=== PATIENT | female | born 1965 | race Two or more races ===

== ENCOUNTER 2020-04-16 08:51 | Outpatient (REF) | payer OTHER, SELFPAY ==
[2020-04-16 09:40] LABS: MANUAL DIFF FLAG NO
[2020-04-16 09:45] LABS: Basophils Percent Auto 0.5 % (0-2); Eosinophils Absolute Auto 0.1 X10*3/uL (0.0-0.4); Eosinophils Percent Auto 1.2 % (0-4); Hematocrit 37.3 % (37-47); Hemoglobin 11.6 g/dl (12.0-16.0); Imm Gran Abs Auto 0.02 X10*3/uL (0.00-0.03); Imm Gran Pct Auto 0.3 % (0.0-0.4); Lymphocytes Absolute Auto 1.8 X10*3/uL (1.2-4.9); Lymphocytes Percent Auto 30.1 % (20-40); Mean Corpuscular HGB Conc 31.1 g/dl (31.0-35.0); Mean Corpuscular Hemoglobin 25.9 pg (27.0-33.0); Mean Corpuscular Volume 83.3 fL (80-98); Mean Platelet Volume 10.7 fL (9.4-12.3); Monocytes Absolute Auto 0.5 X10*3/uL (0.1-1.2); Monocytes Percent Auto 7.7 % (2-11); Neutrophils Absolute Auto 3.6 X10*3/uL (2.0-8.3); Neutrophils Percent Auto 60.2 % (45-73); Platelet Count 291 X10*3/uL (160-400); Red Blood Count 4.48 X10*6/uL (4.20-5.50); Red Cell Distribution Width 14.8 % (11.0-16.0)
[2020-04-16 10:25] LABS: Lipase 36 U/L (8-78)
[2020-04-16 10:39] LABS: Thyroid Stimulating Hormone 1.72 mIU/mL (0.32-4.0)
== END 2020-04-16 08:52 | disposition home or self-care (01) ==
LOC: HO.LAB 08:51
PROVIDERS: Visit Provider Internal Medicine
DX: G44.209 Tension-type headache, unspecified, not intractable (principal); I10 Essential (primary) hypertension; R10.13 Epigastric pain; R21 Rash and other nonspecific skin eruption
CPT/HCPCS: 36415; 83690; 84443; 85025

== ENCOUNTER 2020-05-26 15:03 | Outpatient (REF) | payer OTHER, SELFPAY ==
--- NOTE | 2020-05-26 15:11 | MM_ITS ---
EXAMINATION: MM SCREENING DIGITAL BREAST TOMOSYNTHESIS, BILATERAL CLINICAL INFORMATION: Screening. Asymptomatic. The lifetime risk of breast cancer based on the Tyrer-Cuzick Model is 7.6%. COMPARISON: Mammography: May 21, 2019 TECHNIQUE: Digital breast tomosynthesis is performed in both the craniocaudal and mediolateral oblique views along with computer-aided detection (CAD). Synthesized 2D images are generated from the tomosynthesis. FINDINGS: The breasts are heterogeneously dense, which may obscure small masses (ACR BI-RADS breast composition Category c). There are no significant masses, abnormal calcifications, or other abnormalities. MM/MM tomosynthesis screening BI IMPRESSION: There are no significant changes from prior study. ASSESSMENT: BI-RADS 1: Negative RECOMMENDATION: Routine annual mammography screening. This patient's information was entered into a reminder system with a target due date for their next mammogram.
== END 2020-05-26 15:04 | disposition home or self-care (01) ==
LOC: HO.MAMMO 15:03
PROVIDERS: PCP Internal Medicine; Visit Provider Internal Medicine
DX: Z12.31 Encounter for screening mammogram for malignant neoplasm of breast (principal)
CPT/HCPCS: 77063; 77067

== ENCOUNTER 2020-07-01 08:59 | Outpatient (REF) | payer OTHER, SELFPAY ==
[2020-07-01 10:18] LABS: Alanine Aminotransferase 28 U/L (0-31); Albumin Level 4.3 g/dL (3.5-5.0); Alkaline Phosphatase 78 U/L (39-117); Anion Gap 11 (12-20); Aspartate Amino Transferase 20 U/L (5-31); Bilirubin Total 0.7 mg/dL (0.0-1.0); Blood Urea Nitrogen 26 mg/dL (9-16); Calcium 9.4 mg/dL (8.4-10.2); Carbon Dioxide 32 mmol/L (22-29); Chloride 105 mmol/L (96-108); Cholesterol 229 mg/dL; Estimated Glomerular Filt Rate > 60; Glucose Random 84 mg/dL (60-115); HDL Cholesterol 88 mg/dL; LDL Cholesterol Calculated 118 mg/dl; Potassium 4.4 mmol/l (3.3-5.1); Sodium 144 mmol/L (135-145); Total Protein 7.1 g/dL (6.5-8.0); Triglycerides 116 mg/dL
== END 2020-07-01 09:00 | disposition home or self-care (01) ==
LOC: HO.LAB 08:59
PROVIDERS: PCP Internal Medicine; Visit Provider Internal Medicine
DX: Z00.00 Encounter for general adult medical examination without abnormal findings (principal); E78.00 Pure hypercholesterolemia, unspecified; I10 Essential (primary) hypertension
CPT/HCPCS: 36415; 80053; 80061

== ENCOUNTER 2021-01-25 07:50 | Outpatient (REF) | payer OTHER, SELFPAY ==
--- NOTE | ~2021-01-25 | US_ITS ---
EXAMINATION: US ABDOMEN COMPLETE CLINICAL INFORMATION: Epigastric pain. COMPARISON: None TECHNIQUE: Real-time imaging of the abdominal viscera. FINDINGS: PANCREAS: The pancreas is obscured by overlying bowel gas. ABDOMINAL AORTA: The proximal and distal segments are normal in caliber. The midportion of the aorta is not seen. INFERIOR VENA CAVA: Visualized portions are normal. LIVER: Normal. The liver is normal in size. The liver contour is normal. Parenchymal echogenicity is normal. No focal hepatic lesion. There is no intrahepatic biliary duct dilatation seen. GALLBLADDER: There is no tenderness to palpation. The gallbladder appears predominantly contracted. The gallbladder is physiologically distended without evidence of stones, sludge, polyps, wall thickening or pericholecystic fluid. COMMON BILE DUCT: Normal in caliber measuring 0.6 cm in diameter. RIGHT KIDNEY: Normal. No hydronephrosis. No renal calculi or focal parenchymal lesions. The kidney measures 11.8 cm in maximum dimension. LEFT KIDNEY: There is deformity to the left kidney. I cannot tell of this represents a left renal mass or effusion defect to the left kidney. No hydronephrosis. No renal calculi or focal parenchymal lesions. The kidney measures 11.0 cm in maximum dimension. SPLEEN: Normal. The spleen measures 7.8 cm in maximum dimension. FREE FLUID: None. US/US abdomen complete IMPRESSION: 1. There is deformity to the left kidney which is difficult to discern based on the body habitus. It could represent a perfusion defect. However, a mass cannot be completely excluded. A contrast-enhanced MRI or CT scan is recommended for better delineation. 2. The gallbladder appears contracted. No gallstones are seen.
== END 2021-01-25 07:51 | disposition home or self-care (01) ==
LOC: HO.US 07:50
PROVIDERS: Visit Provider Internal Medicine
DX: R10.13 Epigastric pain (principal)
CPT/HCPCS: 76700

== ENCOUNTER 2021-06-02 13:19 | Outpatient (REF) | payer OTHER, SELFPAY ==
--- NOTE | ~2021-06-02 | MM_ITS ---
EXAMINATION: MM SCREENING DIGITAL BREAST TOMOSYNTHESIS, BILATERAL CLINICAL INFORMATION: Screening. Asymptomatic. The lifetime risk of breast cancer based on the Tyrer-Cuzick Model is 8.9%. COMPARISON: Mammography: May 26, 2020 and May 21, 2019 TECHNIQUE: Digital breast tomosynthesis is performed in both the craniocaudal and mediolateral oblique views along with computer-aided detection (CAD). Synthesized 2D images are generated from the tomosynthesis. FINDINGS: There are scattered areas of fibroglandular density (ACR BI-RADS breast composition Category b). There are no significant masses, abnormal calcifications, or other abnormalities. MM/MM tomosynthesis screening BI IMPRESSION: There are no significant changes from prior study. ASSESSMENT: BI-RADS 1: Negative RECOMMENDATION: Routine annual mammography screening. This patient's information was entered into a reminder system with a target due date for their next mammogram.
== END 2021-06-02 13:20 | disposition home or self-care (01) ==
LOC: HO.MAMMO 13:19
PROVIDERS: Visit Provider Internal Medicine
DX: Z12.31 Encounter for screening mammogram for malignant neoplasm of breast (principal)
CPT/HCPCS: 77063; 77067

== ENCOUNTER 2021-06-20 07:38 | Outpatient (REF) | payer OTHER, SELFPAY | END 2021-06-20 07:39 | disposition home or self-care (01) | LOC: HO.HMGCLDS 07:38 | PROVIDERS: Visit Provider Internal Medicine | DX: Z20.822 Contact with and (suspected) exposure to COVID-19 (principal) | CPT/HCPCS: C9803; U0003; U0005 ==

== ENCOUNTER 2023-08-23 10:12 | Outpatient (REF) | payer OTHER, SELFPAY ==
[2023-08-23 11:50] LABS: Hematocrit 38.9 % (37.0-47.0); Hemoglobin 12.4 g/dl (12.0-16.0); Mean Corpuscular HGB Conc 31.9 g/dl (31.0-35.0); Mean Corpuscular Hemoglobin 26.5 pg (27.0-33.0); Mean Corpuscular Volume 83.1 fL (80.0-98.0); Mean Platelet Volume 10.2 fL (9.4-12.3); Platelet Count 297 X10*3/uL (160-400); Red Blood Count 4.68 X10*6/uL (4.20-5.50); Red Cell Distribution Width 14.2 % (11.0-16.0); White Blood Count 7.9 X10*3/uL (4.8-10.8)
[2023-08-23 12:45] LABS: Anion Gap 14 (12-20); Blood Urea Nitrogen 17 mg/dL (9-16); Calcium 10.1 mg/dL (8.4-10.2); Carbon Dioxide 30 mmol/L (22-29); Chloride 101 mmol/L (96-108); Estimated Glomerular Filt Rate > 60; Glucose Random 90 mg/dL (60-115); Potassium 4.1 mmol/L (3.3-5.1); Sodium 141 mmol/L (135-145); TSH reflex Free T4 1.04 uIU/mL (0.32-4.0)
== END 2023-08-23 10:13 | disposition home or self-care (01) ==
LOC: HO.LAB 10:12
PROVIDERS: PCP Internal Medicine; Visit Provider Internal Medicine Cardiovascular Disease
DX: R00.2 Palpitations (principal); I10 Essential (primary) hypertension
CPT/HCPCS: 36415; 80048; 83735; 84443; 85027; 93005

== ENCOUNTER 2023-08-23 10:12 | Outpatient (AMB) | payer OTHER, SELFPAY ==
[2023-08-23 10:23] VITALS: PULSE 73; BMI 29.2
--- NOTE | 2023-08-23 10:23 | A.OFFVIS_ITS ---
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 She is accompanied by her today. She comes because she was recently having symptoms of palpitations and was with very bothered by it. He feels that her heart rate goes really rapid. For that reason because of uncontrolled syndrome she visited office and was noted to have significantly elevated blood pressure in the 200 range. She says she has longstanding history of hypertension generally runs between systolic 140 -160 systolic. It has never been that high. Because of high blood pressure she was started on losartan therapy. But after that she started noticing some back pain and read the pamphlet and decided to stop her losartan. She then continues to have elevated blood pressure but also has symptoms of palpitations. 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 She says she has lot of anxiety and stress related to it. She has not able to cope with it. She has not had any recent blood work, and she is afraid of getting on any medications due to side effects. In the past she had been on lisinopril and developed a cough. She denies any exertional chest pain or shortness of breath. EKG done today shows no significant abnormality. [facility] Medical History (Updated 08/23/23 @ 11:08 by Chapin Webb MD) HTN (hypertension) Review of Systems Const Denies weakness ENT Denies dizziness Card Details: Palpitations Denies chest pain, Denies chest pain with activity, Denies syncope, Denies rapid heart rate, Denies pedal edema, Denies edema, Denies leg edema, Denies lightheadedness, Reports palpitations, Denies dyspnea, Denies dyspnea on exertion and Denies orthopnea Resp Denies cough, Denies dyspnea and Denies dyspnea on exertion GI Denies hematochezia and Denies change in stool character Musc Denies abnormal gait, Denies muscle cramps, Denies muscle weakness, Denies numbness, Denies radiating pain into limb and Denies tingling Neuro Denies abnormal gait, Denies dizziness, Denies syncope, Denies numbness, Denies tingling and Denies weakness Endo Reports palpitations Physical Exam Vital Signs: Last Vital Signs Pulse 73 08/23/23 10:23 BMI result Body Mass Index 29.2 Const General: cooperative, comfortable, no acute distress, alert, awake, Physically active, anxious and well groomed Nutritional Appearance: overweight Orientation/consciousness: patient oriented x3 Limitations: no limitations HEENT Head: Yes normocephalic and Yes atraumatic Neck Neck: Yes trachea midline, Yes supple and Yes no JVD Resp Effort & Inspection: normal respiratory effort Auscultation: clear to auscultation bilaterally Cardio Jugular venous distension: no JVD Palpation: normal PMI Rate: regular rate Rhythm: regular rhythm Heart sounds: S1 normal heart sound present, S2 normal heart sound present, no click, no gallops, no murmurs and no rubs GI Auscultation: normal bowel sounds Skin General skin exam: no rashes or lesions noted Neuro General: patient oriented x3 and no focal motor deficits Extrem General: Yes no clubbing, cyanosis or edema Psych Appearance: grossly normal Affect: Anxious affect present Office Procedures EKG Details: EKG shows normal sinus rhythm with no significant abnormality [id number], Complete Assessment & Plan Assessment & Plan (1) Palpitations: Code(s): R00.2 - Palpitations Plan: Recent onset symptoms of palpitation which are highly suggestive sinus tachycardia although SVT or atrial fibrillation can not be entirely ruled out. This is most likely related to increased stress in her life with associated anxiety/panic attacks. She is extremely anxious today and also event with the situation in her life. Will obtain a 7 day Holter monitor. I think she would benefit from treatment for general anxiety disorder. I would prescribe burden nonselective beta-marifer propranolol once we have a Holter monitor findings and ruled out any significant arrhythmias. Will also obtain an echocardiogram to assess for LV systolic and diastolic function near future. Meanwhile will obtain baseline blood work including thyroid profile and CBC as well as renal function to rule out any other potential cause of sinus tachycardia. She understands and agrees. We discussed about various stress mitigation strategies. (2) HTN (hypertension): Code(s): I10 - Essential (primary) hypertension Plan: Hypertension which is longstanding. We discussed management of hypertension as this requires and causes end-organ damage. Importance of good blood pressure control was discussed. Importance of pharmacotherapy was discussed. Pa rticipate in stress mitigation strategies. Increasing oral water intake as well as reduction salt intake was discussed. Advised to continue monitor blood pressure at home and maintain a log. Once we have had Holter monitor hooked up will start her on nonselective beta-marifer such as propranolol to counter both high blood pressure as well as tachycardia. She would benefit from such treatment. Impact of long-term control of blood pressure goal blood pressure less than 130/84 was discussed with her. Will follow up in the clinic in 6 weeks time, sooner p.r.n.. Thank you for allowing me to partake in the care Orders: Orders CA echo transthoracic complete 08/23/23 R00.2 - Palpitations Basic Metabolic Panel 08/23/23 R00.2 - Palpitations TSH reflex Free T4 08/23/23 R00.2 - Palpitations ECG 7 day holter monitor 08/23/23 R00.2 - Palpitations Complete Blood Count no Diff 08/23/23 R00.2 - Palpitations Magnesium 08/23/23 R00.2 - Palpitations Coding Level of Care Code New Pt Level 4 (00071) Diagnoses Palpitations R00.2 HTN (hypertension) I10 CPT Codes EKG - CPT: 42832-[id number], Complete ([id number])
== END 2023-08-23 11:12 | disposition home or self-care (01) ==
PROVIDERS: PCP Internal Medicine; Visit Provider Internal Medicine Cardiovascular Disease
DX: R00.2 Palpitations (principal); I10 Essential (primary) hypertension
CPT/HCPCS: 93010; 99204

== ENCOUNTER → 2023-10-03 07:51 | Outpatient (REF) | payer OTHER, SELFPAY ==
--- NOTE | 2023-10-03 07:55 | CA_ITS ---
Transthoracic Echocardiogram Patient (Last, First, Middle): Zonia Artis, Gender: Female Date of : 1965 Age: 58 Procedure Date: 10/03/2023 Procedure Type: Transthoracic Echocardiogram Location: OP Height: 154.94 cm Weight: 69.85 kg BSA: 1.69 m2 Heart Rate: 73 bpm BP: 162 / 86 mmHg Medical Collections: Referring MD: Chapin Webb MD Symptoms: R00.2 - Palpitations Study Quality: Adequate ECG Rhythm: Sinus Conclusions: - The left ventricular systolic function is low normal. The visually estimated ejection fraction is between 50-55%. - No obvious valvular pathology seen on this study. Findings Left Ventricle Normal left ventricular cavity size. There is normal left ventricular wall thickness. The left ventricular systolic function is low normal. The visually estimated ejection fraction is between 50-55%. There is no evidence of regional wall motion abnormalities. Diastolic function is normal for age. LV peak GLS -17.6%. Right Ventricle Normal right ventricular cavity size and systolic function. Atria Both atria are normal in size. Aortic Valve There is a normal trileaflet aortic valve. There is no aortic valve stenosis. There is no aortic valve regurgitation. Mitral Valve The mitral valve appears normal. There is trace mitral valve regurgitation. There is no mitral valve stenosis. Pulmonic Valve The pulmonic valve is likely normal. There is trace pulmonic valve regurgitation. Tricuspid Valve There is trace tricuspid valve regurgitation. There is no evidence of pulmonary hypertension. Great Vessels The asc aorta is normal in size. Venous The inferior vena cava was not well visualized. Pericardium/Pleural There is no evidence of pericardial effusion. Prior Study Comparison No prior study available for comparison. Recommendations, Care & Conclusions No obvious valvular pathology seen on this study. Measurements 2D Linear Measurements IVSd: 1.02 0.6-0.9/0.6-1.0 cm LVIDd: 4.42 3.9-5.3/4.2-5.9 cm LVIDd Index: 2.62 2.4-3.2/2.2-3.1 cm/m2 LVIDs: 3.20 2.0-3.6 cm LVPWd: 0.79 0.7-1.1 cm LA Diam: 4.00 2.7-3.8/3.0-4.0 cm LAIDs Index: 2.37 1.5-2.3 cm/m2 LV Mass: 161.55 67-162/88-224 g LV Mass Index: 95.59 43-95/49-115 g/m2 LVOT Diam: 1.90 3.0+(-)1.3 cm 2D Systolic Function EF 4C: 41.90 >55% EF 2C: 58.90 >55% EF BiP: 50.70 >55% Mitral Valve MV Pk E: 0.65 MV PK A: 0.65 MV Decel Time: 192.00 E/A: 1.00 E'Lateral: 8.16 E'Medial: 5.55 E/E' Med: 11.60 E/E' Lat: 7.90 PHT: 56.00 MVA PHT: 3.93 Decel Major: 3.35 Aortic Valve AoV Pk Lucas: 1.23 AoV Pk Grad: 6.00 ROSI: 2.22 LVOT LVOT Pk Lucas: 0.95 LVOT Mn Lucas: 0.69 LVOT VTI: 0.20 LVOT Pk Grad: 4.00 LVOT Mn Grad: 2.00 LVOT Diam: 1.90 LVOT Area: 2.84 Diastolic Function MV Pk E: 0.65 MV Pk A: 0.65 E/A: 1.00 E'Medial: 5.55 E/E' Med: 11.60 E' Laterial: 8.16 E/E' Lat: 7.90 Right Ventricle TAPSE (mm): 18.20 TVS' Lucas: 11.30 Tricuspid Valve TR Pk Lucas: 1.60 TR Pk Grad: 10.00 RA Press: 3.00 RVSP: 13.00 Great Vessels Aorta Sinus of Valsalva: 2.90 2.0-3.5 cm Ao Asc: 3.50 2.1-3.4 cm Pulmonary Veins Pulm Vein S/D 1.30 Pulmonary Valve PV Pk Lucas: 0.81 Peak PV Grad: 3.00 Updated in Other Vendor System with Status of Final Messi Ag MD electronically signed on 10/04/2023 11:30:03 AM with status of Final
--- NOTE | 2023-10-03 07:55 | HM_ITS ---
Conclusion: 1. Patient was monitored for total period of 6 days and 21 hours 2. Baseline was normal sinus rhythm with average heart of 84 beats per minute 3. No significant pauses noted 4. Rare ectopy noted 5. No patient reported events MTDD
== END ==
LOC: HO.CARD 07:51
PROVIDERS: PCP Internal Medicine; Visit Provider Internal Medicine Cardiovascular Disease
DX: R00.2 Palpitations (principal)
CPT/HCPCS: 93242; 93306; 93356

== ENCOUNTER → 2023-10-03 07:55 | Outpatient (BNV) | payer OTHER, SELFPAY | PROVIDERS: PCP Internal Medicine; Visit Provider Internal Medicine | DX: R00.0 Tachycardia, unspecified (principal) | CPT/HCPCS: 93244; 93306; 93356 ==

== ENCOUNTER 2024-06-05 06:00 | Emergency (ER) | payer OTHER, SELFPAY ==
--- NOTE | ~2024-06-05 | CT_ITS ---
EXAMINATION: CT ABDOMEN AND PELVIS WITHOUT CONTRAST CLINICAL INFORMATION: Severe left-sided flank pain COMPARISON: None available. TECHNIQUE: Multidetector volumetric imaging was performed from the superior aspect of the liver through the pubic symphysis. Sagittal and coronal reformatted images were obtained on the technologist's workstation. This CT examination was performed using dose optimization techniques as appropriate, variously including the following: *Automated exposure control *Adjustment of mA and/or kV according to patient size (this includes techniques or standardized protocols for targeted exams where dose is matched to indication/reason for exam; i.e. extremities or head) *Use of iterative reconstruction technique DLP: 507 mGy-cm FINDINGS: LUNG BASES: The visualized lung bases are unremarkable. LIVER, GALLBLADDER, AND BILIARY TREE: The liver is normal in size, shape, and attenuation. No focal hepatic lesion or biliary ductal dilatation is present. The gallbladder is unremarkable with no evidence of radiopaque gallstones, gallbladder wall thickening, or obvious pericholecystic inflammatory changes. PANCREAS: Unremarkable. SPLEEN: Unremarkable. ADRENAL GLANDS: Unremarkable. KIDNEYS AND URETERS: There is engorgement of the left kidney with perinephric stranding and mild left hydronephrosis. There is an obstructing stone observed at the left UPJ, at 4.6 mm. No right or left nephrolithiasis. No right hydronephrosis or perinephric collection. BLADDER: Unremarkable. GASTROINTESTINAL TRACT: Moderate sigmoid diverticulosis noted without diverticulitis. No bowel obstruction or right or left lower quadrant inflammatory change. Appendix normal. ABDOMINAL WALL: No significant hernia is appreciated. LYMPH NODES: Normal. VASCULAR: Unremarkable. PELVIC VISCERA: Uterus absent. No ascites. No adnexal masses. OSSEOUS STRUCTURES: On the lytic change within the spine. No fracture or destructive process. CT/CT abdomen pelvis wo IV con IMPRESSION: Obstructing stone in the left UPJ. Fleischner guidelines were followed. Electronically signed by: Elkin Lopez MD 06/05/2024 09:40 AM LATISHA
[2024-06-05 06:04] VITALS: BP 210/105; PULSE 85; RESP 22; TEMP 36.8; O2SAT 100; BMI 29.6
--- OUTSIDE RECORDS SUMMARY | 2024-06-05 06:04 | XMS_ITS | Patient Health Record ---
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 Name Role Phone Seble Costello Primary Care Provider UnavailDeepak Goncalves Unavailable [phone] ALLERGIES No Known Allergies REASON FOR REFERRAL No Information MEDICATIONS Medication SIG (Take, Route, Fr equency, Duration) Notes Start Date End Date Status tylenol Active Vitamin D Active Omeprazole 20 MG 1 capsule 30 minutes before morning meal Orally Once a day for 30 day(s) Active SOCIAL HISTORY Tobacco Use: Social History Observation Description Date Details (start date - stop date) Never Smoker NA - NA Sex Assigned At : Social History Observation Description Sex Assigned At Unknown Tobacco Use/Smoking Question Answer Notes Patient is a nonsmoker Alcohol Screen Question Answer Notes Did you have a drink contain ing alcohol in the past year? Yes How often did you have a dri nk containing alcohol in the past year? Monthly or less (1 point) How many drinks did you have on a typical day when you were drinking in the past year? 1 or 2 drinks (0 point) How often did you have 6 or more drinks on one occasion in the past year? Never (0 point) Points 1 Interpretation Negative PROBLEMS Problem Type ICD Code Onset Dates Problem Status W/U Status Risk SNOMED Code Notes Problem Encounter for screening for malignant neoplasm of colon (Z12.11) Active confirmed 207179392 Problem Abdominal pain, epigastric (R10.13) Active confirmed [id number] PLAN OF TREATMENT Pending Test Test Name Order Date US ABD 01/06/2021 US abdomen complete 01/25/2021 Future Test Test Name Order Date UPPER GI ENDOSCOPY 01/06/2021 COLONOSCOPY 01/06/2021 Insurance Providers Payer Name Payer Address Payer Phone Subscriber Number Group Number Insured Name Patient Relationship to Insured Coverage Start Date Coverage End Date [facility] [address] [place] [phone] [id number] ZACHARY MACKENZIE Self - patient is the insured MEDICAL (GENERAL) HISTORY Medical History History ICD Code Hypertension Migraine headaches Hx of blood transfusions/anemia from [facility] - Dr. Parker Denies NM,DM,CVA,Lung disease,renal dise ase Surgical History Surgery Date(Month/Year) Hysterectomy 2008
[2024-06-05 06:19] VITALS: BP 201/02; PULSE 79; RESP 15; TEMP 37.1; O2SAT 96
--- NOTE | 2024-06-05 06:24 | ED.GENADULT ---
HPI - General Adult General Chief complaint: Abdominal Pain Stated complaint: abd pain, back pain Time Seen by Provider: 06/05/24 06:24 Source: patient and RN notes reviewed Mode of arrival: ambulatory Limitations: no limitations History of Present Illness ED Provider: Ermias [facility] narrative: Patient is a 58-year-old female with history of HTN presenting to the emergency department with complaint of sudden onset left sided back and flank pain radiating to LLQ of abdomen which woke her from sleep at 2am. Took naproxen prior to arrival without relief. Pain has been constant and severe. Denies dysuria, hematuria or other urinary symptoms. Denies fever, chills, sweats. Denies nausea, vomiting, diarrhea, constipation. Does report one episode of hematemesis two days ago, but reports history of ulcer and denies any other symptoms until onset of pain this morning. MD complaint: left flank pain Onset (ago): hour(s) Radiation: abdomen Severity: severe Quality: sharp Pain Consistency: constant Relieving factors: none Exacerbating factors: none Associated symptoms: denies other symptoms Treatments prior to arrival: NSAID Related Data Previous Rx's ?Medication ?Instructions ?Recorded morphine 15 mg immediate release 15 mg PO Q8H PRN severe pain 06/05/24 tablet (scale score 7-10) #10 tabs ondansetron HCl 4 mg tablet 4 mg PO Q8H PRN nausea and 06/05/24 vomiting #10 tabs prednisone 20 mg tablet 20 mg PO DAILY #7 tabs 06/05/24 tamsulosin 0.4 mg capsule 0.4 mg PO DAILY #14 caps 06/05/24 Allergies Allergy/AdvReac Type Severity Reaction Status Date / Time oxycodone [From PERCOCET] Allergy Unknown ITCHYNESSS Unverified 06/05/24 06:07 Review of Systems Review of Systems: As per HPI Yes all other systems are reviewed and are negative Constitutional: Constitutional: Reports as per HPI [facility] Past Medical History Medical History (Updated 06/05/24 @ 10:48 by Cheyenne Monson NP) HTN (hypertension) Social History Social History Smoked in Last 30 Days: No Use of substances other than those prescribed or required for medical reasons: No Advance Directives: No Advance Directives Information Provided: Yes Patient : No Physical Exam ED Vital Signs: Vital Signs - 24 hr 06/05/24 06:04 12/19/24 06:19 06/05/24 07:09 Temperature 98.2 F 98.8 F 97.9 F Pulse Rate 85 79 81 Respiratory Rate 22 H 15 20 Blood Pressure 210/105 H 201/02 H 170/104 H Pulse Oximetry 100 96 100 Oxygen Delivery Method Room Air Room Air Room Air 06/05/24 08:31 Temperature 97.5 F Pulse Rate 67 Respiratory Rate 16 Blood Pressure 123/71 Pulse Oximetry 95 Oxygen Delivery Method Room Air BMI result Body Mass Index 29.6 Vital signs have been reviewed and appear to be correct. Blood pressure hypertensive. Heart rate normal. Respiratory rate normal. Temperature normal. Oxygen saturation normal. Const General: cooperative, healthy appearing and no acute distress Orientation/consciousness: oriented to person, oriented to place, oriented to time and patient oriented x3 Limitations: no limitations HENMT Head: Yes normocephalic and Yes atraumatic Ears: external ears normal General nose exam: Normal external nose present Face and sinus: Yes face symmetric Mouth: oropharynx normal and moist mucous membranes Throat: Yes uvula midline Eyes Pupils: Equal, round and reactive pupils present Neck Neck: Yes normal visual inspection and Yes supple Resp Effort & Inspection: normal respiratory effort and able to speak in complete sentences Auscultation: clear to auscultation bilaterally Cardio Rate: regular rate Rhythm: regular rhythm Heart sounds: S1 normal heart sound present and S2 normal heart sound present GI Palpation (GI): Soft to palpation, Tenderness to palpation present (GI) in the LLQ, no guarding and No Rebound tenderness present Auscultation: normoactive bowel sounds General: Yes CVA tenderness on the left Back/Spine/Pelvis Back: CVA tenderness Skin General skin exam: elasticity normal and turgor normal Neuro General: oriented to person, oriented to place, oriented to time, patient oriented x3, moves all extremities, no focal motor deficits and CN's II-XI intact bilaterally Cranial nerves: Yes Equal, round and reactive pupils present Cognition (Neuro): normal cognition Extrem General: Yes full ROM, Yes no pedal edema and Yes no calf tenderness Psych Mental Status: mental status grossly normal Affect: normal affect Thought process: Normal thought process present Medications Administered Discontinued Medications Generic Name Dose Route Start Last Admin Trade Name Freq PRN Reason Stop Dose Admin Hydromorphone HCl 1 mg 06/05/24 06:32 06/05/24 06:38 Hydromorphone Hcl 1 Mg/Ml Syringe IVPUSH 06/05/24 06:33 1 mg ONCE ONE Administration Protocol Hydromorphone HCl 2 mg 06/05/24 07:02 06/05/24 07:07 Hydromorphone Hcl 2 Mg/Ml Vial IVPUSH 06/05/24 07:03 2 mg ONCE ONE Administration Protocol Ketorolac Tromethamine 15 mg 06/05/24 10:14 06/05/24 10:30 Ketorolac Tromethamine 15 Mg/Ml Vial IVPUSH 06/05/24 10:15 15 mg ONCE ONE Administration Ondansetron HCl 4 mg 06/05/24 06:30 06/05/24 06:38 Ondansetron Hcl 4 Mg/2 Ml Vial IVPUSH 06/05/24 06:31 4 mg ONCE ONE Administration Medical Decision Making Medical Decision Making [facility] Narrative: Patient is a 58-year-old female with history of HTN presenting to the emergency department with complaint of sudden onset left sided back and flank pain radiating to LLQ of abdomen which woke her from sleep at 2am. On exam patient is awake, A+Ox3, VS WNL, afebrile, normal neurological exam without focal deficits, physical exam findings as above. Given reported symptoms and physical exam findings, initial differential includes renal/ureteral calculi, hydronephrosis, UTI/pyelonephritis, less likely diverticulitis. Labs notable for mild leukocytosis. UA is without evidence of infection. CT notable for 4.6mm obstructing calculi at L UPJ with mild hydronephrosis. My interpretation is in agreement with the radiologist's interpretation. Patient reports significant improvement in pain after medications administered in the ED. Results discussed with patient and and all questions answered. Case discussed with Dr. Bowling who is agreeable with plan to discharge home on prednisone, tamsulosin, zofran and morphine and follow up outpatient. Strict return precautions discussed with patient and at bedside. Patient verbalized understanding of and agreement with plan. Differential Diagnosis Differential Diagnoses: The differential diagnosis associated with the presentation includes As per MDM Admission/Observation Consideration of admission/observation: Escalation of care including admission/observation considered Patient would have been admitted to the hospital had their work up had any findings where hospital admission was appropriate and their clinical presentation warranted hospital admission. Consult Healthcare Provider Management of the patient was discussed with: Operational Risk Manager (Dr. Bowling, urology) Lab Data [facility] Lab Attestation statement: I reviewed the patient's lab results. As per MDM 06/05/24 06:31 06/05/24 08:39 Labs: Lab Results 06/05/24 06/05/24 06/05/24 Range/Units 06:31 08:39 08:51 WBC 13.3 H (4.8-10.8) X10*3/uL RBC 4.96 (4.20-5.50) X10*6/uL Hgb 13.1 (12.0-16.0) g/dl Hct 41.0 (37.0-47.0) % MCV 82.7 (80.0-98.0) fL MCH 26.4 L (27.0-33.0) pg MCHC 32.0 (31.0-35.0) g/dl RDW 14.3 (11.0-16.0) % Plt Count 292 (160-400) X10*3/uL MPV 10.9 (9.4-12.3) fL Immature Gran % (Auto) 0.7 H (0.0-0.4) % Neut % (Auto) 84.7 H (45-73) % Lymph % (Auto) 10.2 L (20-40) % [place] % (Auto) 3.8 (2-11) % Eos % (Auto) 0.3 (0-4) % Baso % (Auto) 0.3 (0-2) % Lymph # (Auto) 1.4 (1.2-4.9) X10*3/uL [place] # (Auto) 0.5 (0.1-1.2) X10*3/uL Eos # (Auto) 0.0 (0.0-0.4) X10*3/uL Baso # (Auto) 0.0 (0.0-0.2) X10*3/uL Abs Immat Gran (auto) 0.09 H (0.00-0.03) X10*3/uL Absolute Neuts (auto) 11.3 H (2.0-8.3) x10*3/uL Absolute Nucleated RBC 0.000 (0.0-0.012) X10*3/uL Nucleated RBC % (auto) 0.0 (0.0-0.2) /100WBC PT 9.5 L (10.9-12.4) SEC INR 0.8 L (0.9-1.1) Sodium 143 (135-145) mmol/L Potassium 4.4 (3.3-5.1) mmol/L Chloride 112 H (96-108) mmol/L Carbon Dioxide 24 (22-29) mmol/L Anion Gap 11 L (12-20) BUN 28 H (9-16) mg/dL Creatinine 1.01 (0.5-1.4) mg/dL Estim Creat Clear Calc 56.2 Estimated GFR 56 Random Glucose 180 H (60-115) mg/dL Calcium 9.2 D (8.4-10.2) mg/dL Total Bilirubin 0.5 (0.0-1.0) mg/dL AST 56 H (5-31) U/L ALT 50 H (0-31) U/L Alkaline Phosphatase 97 (39-117) U/L Total Protein 7.3 (6.5-8.0) g/dL Albumin 4.0 (3.5-5.0) g/dL Urine Color Yellow Urine Appearance Cloudy Urine pH 6.5 (5.0-9.0) Ur Specific [place] >= 1.030 H (1.005-1.025) Urine Protein 100 (2+) H (Neg-Trace) mg/dL Urine Glucose (UA) Negative (Negative) mg/dL Urine Ketones Negative (Negative) mg/dL Urine Blood Negative (Negative) Urine Nitrite Negative (Negative) Ur Leukocyte Esterase Negative (Negative) Urine RBC 0-2 (0-2) /HPF Urine WBC 0-5 (0-5) /HPF Ur Squamous Epith Cells 3-5 (0-2) /HPF Urine Bacteria None Seen (None Seen) Hyaline Casts 0-2 (0-2) /LPF Independent Interpretation I performed an independent interpretation of an: CT Scan Interpretation: 4.6mm obstructing calculi L UPJ with mild hydronephrosis Radiology Impression Discussion of test interpretation with radiology: I have reviewed the radiologist's reading. Radiologist Impression: CT/CT abdomen pelvis wo IV con IMPRESSION: Obstructing stone in the left UPJ. Fleischner guidelines were followed. Independent Historian Clinical information obtained from an independent historian. History obtained from or confirmed by: Spouse External Record Review External record reviewed: Inpatient record, Office record and Outpatient record Prescription Management I considered prescription management with: Pain Medication and Other Critical Care Time Critical Care Time Critical Care Time: Yes Total Critical Care Time: 35 Attestation: I have personally provided critical care time exclusive of time spent on separately billable procedures. Time includes review of lab data, radiology results, discussion with consultants, and monitoring for potential decompensation. Intervention performed as documented. Discharge Plan Discharge Clinical Impression: Calculus of left ureter Patient Disposition: Home, Self-Care Instructions: Low Oxalate Diet (ED), How to Strain Your Urine (ED), Hydronephrosis (ED), Ureteral Stones (ED) Additional Instructions: You were evaluated in the emergency department for flank pain. Your CT scan showed evidence of a stone in your left ureter. The stone is 4.6 mm which may or may not pass on its own. Your are being provided with a urine strainer to use at home, instructions are included in your discharge paperwork. You are being prescribed prednisone to decrease inflammation, tamsulosin to allow the stone to pass more easily, and morphine as needed for severe pain. You can also take 600 mg of ibuprofen every 6 hours as needed for pain. Your being prescribed ondansetron which you can use every 8 hours as needed for nausea. You are being referred to Urology, please call them within the next few days to schedule a follow up appointment. Return to the emergency department if you develop worsening pain, persistent vomiting, fever 100.4? or greater, inability to urinate, or any other concerning symptoms. Prescriptions: New ondansetron HCl 4 mg tablet 4 mg PO Q8H PRN (Reason: nausea and vomiting) Qty: 10 0RF morphine 15 mg tablet 15 mg PO Q8H PRN (Reason: severe pain (scale score 7-10)) Qty: 10 0RF Rx Instructions: Partial Fill upon patient request. prednisone 20 mg tablet 20 mg PO DAILY Qty: 7 0RF tamsulosin 0.4 mg capsule 0.4 mg PO DAILY Qty: 14 0RF Referrals: [facility] Urology Services [Provider Group] - 3 days (4.6mm calculi L UPJ) Stand Alone Forms: Work/School Release Print Language: Tristanian
[2024-06-05 06:37] LABS: MANUAL DIFF FLAG NO
[2024-06-05] MEDS: ondansetron HCL 4 MG/2 ML VIAL IVPUSH (06:38)
[2024-06-05] MEDS: HYDROmorphone HCl 1 MG/ML SYRINGE IVPUSH (06:38)
[2024-06-05 06:43] LABS: INTERNATIONAL NORM RATIO 0.8 (0.9-1.1); Prothrombin Time 9.5 SEC (10.9-12.4)
[2024-06-05 07:03] LABS: Basophils Percent Auto 0.3 % (0-2); Eosinophils Percent Auto 0.3 % (0-4); Hemoglobin 13.1 g/dl (12.0-16.0); Imm Gran Abs Auto 0.09 X10*3/uL (0.00-0.03); Imm Gran Pct Auto 0.7 % (0.0-0.4); Lymphocytes Absolute Auto 1.4 X10*3/uL (1.2-4.9); Lymphocytes Percent Auto 10.2 % (20-40); Mean Corpuscular Hemoglobin 26.4 pg (27.0-33.0); Mean Corpuscular Volume 82.7 fL (80.0-98.0); Mean Platelet Volume 10.9 fL (9.4-12.3); Monocytes Absolute Auto 0.5 X10*3/uL (0.1-1.2); Monocytes Percent Auto 3.8 % (2-11); Neutrophils Absolute Auto 11.3 x10*3/uL (2.0-8.3); Neutrophils Percent Auto 84.7 % (45-73); Platelet Count 292 X10*3/uL (160-400); Red Blood Count 4.96 X10*6/uL (4.20-5.50); Red Cell Distribution Width 14.3 % (11.0-16.0); White Blood Count 13.3 X10*3/uL (4.8-10.8)
[2024-06-05] MEDS: HYDROmorphone HCl 2 MG/ML VIAL IVPUSH (07:07)
[2024-06-05 07:09] VITALS: BP 170/104; PULSE 81; RESP 20; TEMP 36.6; O2SAT 100
[2024-06-05 08:31] VITALS: BP 123/71; PULSE 67; RESP 16; TEMP 36.4; O2SAT 95
[2024-06-05 09:01] LABS: Appearance Urine Cloudy; Color Urine Yellow; Glucose Urine UA Negative (Negative); Leukocyte Esterase Urine Negative (Negative); Nitrite Urine Negative (Negative); PH 6.5 (5.0-9.0); Specific Gravity - Urine >= 1.030 (1.005-1.025); UMIC TRIGGER UACC YES; Urine Blood Negative (Negative); Urine Ketones Negative (Negative); Urine Protein 100 (2+) mg/dL (Neg-Trace)
[2024-06-05 09:07] LABS: Alanine Aminotransferase 50 U/L (0-31); Alkaline Phosphatase 97 U/L (39-117); Anion Gap 11 (12-20); Aspartate Amino Transferase 56 U/L (5-31); Bilirubin Total 0.5 mg/dL (0.0-1.0); Blood Urea Nitrogen 28 mg/dL (9-16); Calcium 9.2 mg/dL (8.4-10.2); Carbon Dioxide 24 mmol/L (22-29); Chloride 112 mmol/L (96-108); Creatinine Clr Calc Pharmacy 56.2; Estimated Glomerular Filt Rate 56; Glucose Random 180 mg/dL (60-115); Potassium 4.4 mmol/L (3.3-5.1); Sodium 143 mmol/L (135-145); Total Protein 7.3 g/dL (6.5-8.0)
[2024-06-05 09:12] LABS: Bacteria Urine None Seen (None Seen); Hyaline Casts Urine 0-2 /LPF (0-2); RBC Urine 0-2 /HPF (0-2); WBC Urine 0-5 /HPF (0-5)
[2024-06-05] MEDS: Ketorolac Tromethamine 15 MG/ML VIAL IVPUSH (10:30)
[2024-06-05 11:13] VITALS: BP 126/80; PULSE 56; RESP 20; TEMP 36.5; O2SAT 96
== END 2024-06-05 11:13 | disposition home or self-care (01) ==
PROVIDERS: Registered Nurse Emergency; Emergency Provider Emergency Medicine Emergency Medical Services
DX: N13.2 Hydronephrosis with renal and ureteral calculous obstruction (principal); I10 Essential (primary) hypertension
CPT/HCPCS: 36415; 74176; 80053; 81001; 81003; 85025; 85610; 96374; 96375; 96376; 99284; J1171; J1885; J2405

== ENCOUNTER 2024-06-06 13:38 | Outpatient (AMB) | payer OTHER, SELFPAY ==
--- NOTE | 2024-06-06 13:42 | A.OFFVIS_ITS ---
Intake Visit Reasons: ER discharge kidney stone Intake Note: New patient Presents for [facility] ER Follow Up- Kidney Stones Any Urology Medication: was prescribed Tamsulosin at ER States that this medication has caused intense mirgraines Antibiotic Allergies: None Blood Thinners: None Patient states that she has no history of Kidney stones, Bladder/Kidney infections. She reports that she still has some discomfort but not as bad as she was at the ER on 06/05 Any Family History (Urological): Bladder Cancer? No Kidney Stones? No Account Development Executive Required: No Allergies oxycodone [From PERCOCET] Allergy (Unknown, Verified 06/16/24 08:37) ITCHYNESSS HPI Comments Details: Zonia is a 58-year-old female who is seen in the emergency room for flank pain. A 6 mm ureteral stone was identified. The patient is here with her and states the pain is manageable with the pain meds she was given. She denies fever. I discussed treatment options to include conservative as along as pain is manageable and there are no signs of infection but if she does not pass the stone, therapy discussed included ESWL vs ureteroscopy with laser lithotripsy. CTAP 06/05/24--6 mm left UPJ stone, with hydro. PFSH Medical History (Updated 06/16/24 @ 08:50 by Ehsan Riojas MD) Migraine HTN (hypertension) Surgical History (Updated 06/06/24 @ 14:09 by JEREMIAS Nevarez) History of hysterectomy Review of Systems Const All systems reviewed & are unremarkable except as noted in HPI and below Reports no additional complaints Eyes Reports no additional complaints ENT Reports no additional complaints Card Reports no additional complaints Resp Reports no additional complaints GI Reports no additional complaints Reports as per HPI Musc Reports no additional complaints Skin/Breast Reports system reviewed and no additional complaints, except as documented Neuro Reports no additional complaints Psych Reports no additional complaints Endo Reports no additional complaints Louie/Lymph Reports no additional complaints Aller/Immun Reports no additional complaints Physical Exam Const General: cooperative, healthy appearing and no acute distress Orientation/consciousness: patient oriented x3 HEENT Head: Yes normal to inspection, Yes normocephalic and Yes atraumatic Eyes Conjunctivae: conjunctivae normal Neck Neck: Yes normal visual inspection and Yes trachea midline Chest Chest palpation & inspection: normal inspection of the chest Resp Effort & Inspection: normal respiratory effort Cardio Rate: regular rate GI Inspection: Yes normal to inspection Skin General skin exam: no rashes or lesions noted Neuro General: patient oriented x3 Extrem General: No edema Psych Appearance: grossly normal Results AMB Urinalysis, Automated UA Leukoctes 0 Charlie/uL Last Edit by Chika Darden [facility] on 06/06/24 14:10 UA Nitrite Negative Last Edit by Chika Darden [facility] on 06/06/24 14:10 UA Urobilinogen 0.2 mg/dL Last Edit by Chika Darden [facility] on 06/06/24 14:1 0 UA Protein 100 mg/dL Last Edit by Chika Darden [facility] on 06/06/24 14:10 UA pH 5.5 Last Edit by Chika Darden [facility] on 06/06/24 14:10 UA Blood 25 [place]/uL Last Edit by Chika Darden [facility] on 06/06/24 14:10 UA Specific [place] 1.030 Last Edit by Chika Darden [facility] on 06/06/24 14: 10 UA Ketone Negative Last Edit by Chika Darden [facility] on 06/06/24 14:10 UA Bilirubin 0 mg/dL Last Edit by Chika Darden [facility] on 06/06/24 14:10 UA Glucose 0 mg/dL Last Edit by Chika Darden [facility] on 06/06/24 14:10 Results Reviewed Results Reviewed: Laboratory Last Values Urine pH (Auto) 5.5 06/06/24 14:02 Specific [place] (Auto) 1.030 06/06/24 14:02 Urine Protein (Auto) 100 mg/dL 06/06/24 14:02 Glucose (UA)(Auto) 0 mg/dL 06/06/24 14:02 Urine Ketones (Auto) Negative 06/06/24 14:02 Urine Blood (Auto) 25 [place]/uL 06/06/24 14:02 Urine Nitrite (Auto) Negative 06/06/24 14:02 Urine Bilirubin (Auto) 0 mg/dL 06/06/24 14:02 Urine Urobilinogen (Auto) 0.2 mg/dL 06/06/24 14:02 Leukocyte Esterase (Auto) 0 Charlie/uL 06/06/24 14:02 Date of Service: 06/05/24 CT ABDOMEN AND PELVIS WITHOUT CONTRAST CLINICAL INFORMATION: Severe left-sided flank pain COMPARISON: None available. TECHNIQUE: Multidetector volumetric imaging was performed from the superior aspect of the liver through the pubic symphysis. Sagittal and coronal reformatted images were obtained on the technologist's workstation. This CT examination was performed using dose optimization techniques as appropriate, variously including the following: *Automated exposure control *Adjustment of mA and/or kV according to patient size (this includes techniques or standardized protocols for targeted exams where dose is matched to indication/reason for exam; i.e. extremities or head) *Use of iterative reconstruction technique DLP: 507 mGy-cm FINDINGS: LUNG BASES: The visualized lung bases are unremarkable. LIVER, GALLBLADDER, AND BILIARY TREE: The liver is normal in size, shape, and attenuation. No focal hepatic lesion or biliary ductal dilatation is present. The gallbladder is unremarkable with no evidence of radiopaque gallstones, gallbladder wall thickening, or obvious pericholecystic inflammatory changes. PANCREAS: Unremarkable. SPLEEN: Unremarkable. ADRENAL GLANDS: Unremarkable. KIDNEYS AND URETERS: There is engorgement of the left kidney with perinephric stranding and mild left hydronephrosis. There is an obstructing stone observed at the left UPJ, at 4.6 mm. No right or left nephrolithiasis. No right hydronephrosis or perinephric collection. BLADDER: Unremarkable. GASTROINTESTINAL TRACT: Moderate sigmoid diverticulosis noted without diverticulitis. No bowel obstruction or right or left lower quadrant inflammatory change. Appendix normal. ABDOMINAL WALL: No significant hernia is appreciated. LYMPH NODES: Normal. VASCULAR: Unremarkable. PELVIC VISCERA: Uterus absent. No ascites. No adnexal masses. OSSEOUS STRUCTURES: On the lytic change within the spine. No fracture or destructive process. IMPRESSION: Obstructing stone in the left UPJ. Assessment & Plan Assessment & Plan (1) Calculus of left ureter: Code(s): N20.1 - Calculus of ureter Category: Medical (2) Hydronephrosis: Code(s): N13.30 - Unspecified hydronephrosis Category: Medical (3) Flank pain: Code(s): R10.9 - Unspecified abdominal pain Category: Medical Plan I discussed treatment options to include conservative as along as pain is manageable and there are no signs of infection but if she does not pass the stone, therapy discussed included ESWL vs ureteroscopy with laser lithotripsy. Orders: Orders AMB Urinalysis Automated 06/06/24 Z13.9 - Encounter for screening, unspecified Medications: Refilled morphine Partial Fill upon patient request. 15 mg PO Q8H PRN 10 tabs 0RF severe pain (scale score 7-10) Patient Instructions: The patient had an opportunity to ask questions regarding treatment plan. The patient expressed understanding and agreement with the above treatment plan. The patient is aware they should contact our office by phone for worsening of their current condition or the appearance of new symptoms. Compliance is encouraged with any medications and followup testing that is ordered. It is a privilege to be allowed the opportunity to participate in the urologic care of your patient. If you have any questions or concerns regarding treatment for the above conditions please do not hesitate to contact me. The office telephone contact is [phone]. This note is constructed in part using voice recognition software. While every effort has been made to ensure accuracy senior executive compensation analyst errors may have been included. Yours sincerely, Ehsan Riojas MD Coding Level of Care Code New Pt Level 4 (41778) Diagnoses Calculus of left ureter N20.1 Hydronephrosis N13.30 Flank pain R10.9
== END 2024-06-06 14:52 | disposition home or self-care (01) ==
PROVIDERS: Visit Provider Urology
DX: Z13.9 Encounter for screening, unspecified (principal)

== ENCOUNTER 2024-06-16 08:35 | Outpatient (AMB) | payer OTHER, SELFPAY ==
--- NOTE | 2024-06-16 08:36 | MHC.OFFVIS ---
Intake Visit Reasons: 2w follow up Intake Note: Patient is present for 2w f/u Urology Medication:tamsulosin Antibiotic Allergy:none Blood Thinner:none Vascular Technologist Required: No Allergies oxycodone [From PERCOCET] Allergy (Unknown, Verified 06/16/24 08:37) ITCHYNESSS Medication List - Last Reconciled 06/16/24 by Ehsan Riojas MD morphine 15 mg PO Q8H PRN ondansetron HCl 4 mg PO Q8H PRN prednisone 20 mg PO DAILY tamsulosin 0.4 mg PO DAILY HPI Comments Details: 06/16/24- follow-up visit for left ureteral stone and flank pain. The patient states she has been taking extra-strength Tylenol every 8 hours and the morphine p.r.n.. The pain is manageable but is not getting better. At times the pain gets unbearable and she thought she might need to go to the emergency room last night. I have discussed adding her to tomorrow schedule for ureteroscopy laser lithotripsy. Review of chart: 06/06/24--Zonia is a 58-year-old female who is seen in the emergency room for flank pain. A 6 mm ureteral stone was identified. The patient is here with her and states the pain is manageable with the pain meds she was given. She denies fever. I discussed treatment options to include conservative as along as pain is manageable and there are no signs of infection but if she does not pass the stone, therapy discussed included ESWL vs ureteroscopy with laser lithotripsy. CTAP 06/05/24--6 mm left UPJ stone, with hydro. PFSH Medical History Migraine HTN (hypertension) Surgical History History of hysterectomy Review of Systems Const All systems reviewed & are unremarkable except as noted in HPI and below Reports no additional complaints Eyes Reports no additional complaints ENT Reports no additional complaints Card Reports no additional complaints Resp Reports no additional complaints GI Reports no additional complaints Reports as per HPI Musc Reports no additional complaints Skin/Breast Reports system reviewed and no additional complaints, except as documented Neuro Reports no additional complaints Psych Reports no additional complaints Endo Reports no additional complaints Louie/Lymph Reports no additional complaints Aller/Immun Reports no additional complaints Physical Exam Const General: cooperative, healthy appearing and no acute distress Orientation/consciousness: patient oriented x3 HEENT Head: Yes normal to inspection and Yes atraumatic Eyes Conjunctivae: conjunctivae normal Neck Neck: Yes normal visual inspection and Yes trachea midline Chest Chest palpation & inspection: normal inspection of the chest Resp Effort & Inspection: normal respiratory effort Cardio Jugular venous distension: no JVD Neuro General: patient oriented x3 Psych Appearance: grossly normal Telehealth Telehealth Telehealth Platform: URBANARA Location of provider rendering services: practice address Location of patient: address on file Patient Identification confirmed using: Name, : Yes Telehealth method: video Patient verbally consented to treatment: Yes Patient verbally consented to billing insurance company: Yes Patient informed of any privacy concerns related to visit: Yes Assessment & Plan Assessment & Plan (1) Calculus of left ureter: Code(s): N20.1 - Calculus of ureter Category: Medical (2) Hydronephrosis: Code(s): N13.30 - Unspecified hydronephrosis Category: Medical (3) Flank pain: Code(s): R10.9 - Unspecified abdominal pain Category: Medical Plan I discussed Left ureteroscopy retrograde with laser lithotripsy, stent. Patient Instructions: The patient had an opportunity to ask questions regarding treatment plan. The patient expressed understanding and agreement with the above treatment plan. The patient is aware they should contact our office by phone for worsening of their current condition or the appearance of new symptoms. Compliance is encouraged with any medications and followup testing that is ordered. It is a privilege to be allowed the opportunity to participate in the urologic care of your patient. If you have any questions or concerns regarding treatment for the above conditions please do not hesitate to contact me. The office telephone contact is [phone]. This note is constructed in part using voice recognition software. While every effort has been made to ensure accuracy dental secretary errors may have been included. Yours sincerely, Ehsan Riojas MD Coding Level of Care Code Tele Est Pt Level 4 (74279) Diagnoses Calculus of left ureter N20.1 Hydronephrosis N13.30 Flank pain R10.9
--- OUTSIDE RECORDS SUMMARY | 2024-06-16 08:38 | XMS_ITS | Patient Health Record ---
Author Organization [facility] Address [address] [place] [address] Care Team Providers Care Academic Affairs Manager Name Role Phone Seble Costello Primary Care Provider UnavailDeepak Goncalves Unavailable [phone] ALLERGIES No Known Allergies REASON FOR REFERRAL [...] malignant neoplasm of colon (Z12.11) Active confirmed [id number] Problem Abdominal pain, epigastric (R10.13) Active confirmed [id number] PLAN OF TREATMENT Pending Test Test Name Order Date US ABD 01/06/2021 US abdomen complete 01/25/2021 Future Test Test Name Order Date UPPER GI ENDOSCOPY 01/06/2021 COLONOSCOPY 01/06/2021 Insurance Providers Payer Name Payer Address Payer Phone Subscriber Number Group Number Insured Name Patient Relationship to Insured Coverage Start Date Coverage End Date [facility] [address] [facility] [place] [phone] [id number] ZACHARY MACKENZIE Self - patient is the insured MEDICAL (GENERAL) HISTORY Medical History History ICD Code Hypertension Migraine headaches Hx of blood transfusions/anemia from [facility] - Dr. Parker Denies DC,DM,CVA,Lung disease,renal dise ase Surgical History Surgery Date(Month/Year) Hysterectomy 2008
== END 2024-06-16 10:03 | disposition home or self-care (01) ==
LOC: HO.HUSH 08:35
PROVIDERS: Visit Provider Urology
DX: N20.1 Calculus of ureter (principal); N13.30 Unspecified hydronephrosis; R10.9 Unspecified abdominal pain
CPT/HCPCS: 99214

== ENCOUNTER → 2024-06-16 08:35 | Outpatient (BNVA) | payer OTHER, SELFPAY | PROVIDERS: Visit Provider Urology ==

== ENCOUNTER 2024-06-17 11:53 | Day surgery (SDC) | payer OTHER, SELFPAY ==
--- NOTE | ~2024-06-17 | XR_ITS ---
EXAMINATION: XR ABDOMEN KUB CLINICAL INDICATION: pre lithotripsy, Left UPJ stone on prior CT COMPARISON: None available. TECHNIQUE: AP view of the abdomen. FINDINGS: There is scattered stool and gas in colon without distention. There is no organomegaly. No radiopaque renal calculi. There is several phleboliths in the left pelvis. XR/XR KUB IMPRESSION: Unremarkable KUB Electronically signed by: Wilian Moy MD 06/19/2024 07:46 AM EST
--- OUTSIDE RECORDS SUMMARY | 2024-06-17 11:55 | XMS_ITS | Patient Health Record ---
Author Organization [facility] Address [address] [place] [address] Care Team Providers Care Ceramic Tiler Name Role Phone Seble Costello Primary Care Provider UnavailDeepak Goncalves Unavailable [phone] ALLERGIES No Known Allergies REASON FOR REFERRAL [...] malignant neoplasm of colon (Z12.11) Active confirmed [id number] Problem Abdominal pain, epigastric (R10.13) Active confirmed [id number] PLAN OF TREATMENT Pending Test Test Name Order Date US ABD 01/06/2021 US abdomen complete 01/25/2021 Future Test Test Name Order Date UPPER GI ENDOSCOPY 01/06/2021 COLONOSCOPY 01/06/2021 Insurance Providers Payer Name Payer Address Payer Phone Subscriber Number Group Number Insured Name Patient Relationship to Insured Coverage Start Date Coverage End Date [facility] [address] [place] [phone] [id number] ZACHARY MACKENZIE Self - patient is the insured MEDICAL (GENERAL) HISTORY Medical History History ICD Code Hypertension Migraine headaches Hx of blood transfusions/anemia from [facility] - Dr. Parker Denies OR,DM,CVA,Lung disease,renal dise ase Surgical History Surgery Date(Month/Year) Hysterectomy 2008
[2024-06-17 12:49] VITALS: BP 162/96; PULSE 86; RESP 115; TEMP 36.8; O2SAT 98; BMI 28.2
[2024-06-17] MEDS: Lactated Ringers 1,000 ML 50 ML IVCONT (12:52)
--- NOTE | 2024-06-17 12:56 | HO.ANESPROP2 ---
[facility] Active Problems Active Problems: All Active Problems Flank pain (Acute) Hydronephrosis (Acute) Palpitations (Acute) HTN (hypertension) (Acute) Past Medical History Medical History (Updated 06/17/24 @ 12:48 by Lilia Varghese RN) Migraine HTN (hypertension) Family History Family history of problems with anesthesia: No Surgical History Surgical History History of hysterectomy History of Problems with Anesthesia: No Social History Social History Patient Tobacco Use Status: Never used Tobacco Use of substances other than those prescribed or required for medical reasons: No Are you DNR?: No Advance Directives: No Advance Directives Information Provided: Yes Meds Allergies Allergy/AdvReac Type Severity Reaction Status Date / Time oxycodone [From PERCOCET] Allergy Unknown ITCHYNESSS Verified 06/17/24 12:47 Active Medications: Current Medications Lactated Ringer's (Lr) 1,000 mls @ 50 mls/hr IVCONT .Q20H JAYME Last Admin: 06/17/24 12:52 Dose: 50 mls/hr Exam Height,Weight and Vital Signs: Height 5 ft 2 in Weight 69.853 kg Last Vital Signs Temp 98.3 F 06/17/24 12:49 Pulse 86 06/17/24 12:49 Resp 115 H 06/17/24 12:49 BP 162/96 H 06/17/24 12:49 Pulse Ox 98 06/17/24 12:49 O2 Del Method Room Air 06/17/24 12:49 Airway Mallampati Class: II TM Dist: >3cm Neck ROM: Full Assessment and Plan Assessment Anesthesia Assessment: Anesthesia Plan Discussed and Chart Reviewed Final Anesthetic Review Family History of Problems with Anesthesia: No History of Problems with Anesthesia: No NPO: Yes ASA Class: II Final Preanesthetic Review: No Changes in Pt Med Stat, Meds/Allgs Chart Reviewed, Consent Obtained/Reviewed and Anes Risks/Benef Reviewed Patient Risk: Low Procedure Risk: Low Anesthetic Plan Anesthetic Plan: GA Disposition: Standard PACU
--- NOTE | 2024-06-17 13:20 | MHC.SHP ---
Pre-Procedural Eval Section A - 24 Hr Update-Section A only Date of Service: 06/17/24 The patient is an INPATIENT: No The patient has been examined within 24 hours of the surgical procedure. The History & Physical has been completed within 30 days and I have reviewed it.: Yes Section B - Complete if H&P > 30 days Chief Complaint: Unspecified hydronephrosis, UPJ stone Allergies: Allergies Allergy/AdvReac Type Severity Reaction Status Date / Time oxycodone [From PERCOCET] Allergy Unknown ITCHYNESSS Verified 06/17/24 12:47 Plan Diagnosis/Plan: Unchanged I have reviewed the history and physical and performed a pertinent physical examination on my patient. No changes have occurred unless specified. Plan for Cystoscopy, left ureteroscopy, possible laser lithotripsy, ureteral stent. Risks discussed included but not limited to, possible need to repeat procedure if stone is not completely fragmented, Irritative voiding symptoms, bladder spasms, urgency, blood in urine. Time Spent With Patient Time: Total time managing care of this patient today ____ minutes.
--- NOTE | 2024-06-17 14:37 | W.PM.OPN ---
Operative Note Operative Note Date of Service: 06/17/24 Narrative: PreOperative Diagnosis:?? Left UPJ stone Post Operative Diagnosis:?? Left distal ureteral stone Procedure: - Cystoscopy, left retrograde, left ureteroscopy laser lithotripsy stent insertion, 6 Guinean by 24 cm Surgeon:?Dr Ehsan Riojas Anesthesia:? General Indications for procedure: Left hydronephrosis obstructed by ureteral stone. Procedure: After informed consent was verified the patient was brought to the operating placed on the OR table in supine position.? General Anesthesia was administered per protocol.? The patient was placed in lithotomy position, prepped and draped in the usual sterile fashion.? Safety pause time-out and side of surgery confirmed.? Antibiotics confirmed. 2% lidocaine jelly 10 mL was passed transurethrally. A 22 Guinean cystoscope was inserted transurethrally, The bladder was visualized.? Both ureteric orifices were in normal position. An open-ended ureteral catheter was passed into the left ureteral orifice and a retrograde examination was performed. There was a filling defect in the left distal ureter and dilatation of the proximal ureter. A guidewire was passed through the ureteral catheter into the kidney. The balloon dilator size 12 fr x 4 cm was passed over the guide-wire the balloon was inflated to 8 mmHg and the intramural ureter was dilated for 45 seconds. The balloon was deflated and removed. After removing the balloon dilator a 2nd guidewire was then passed into the kidney to use as a safety. The cystoscope was removed, leaving both guidewires in place. One guidewire was used as the safety and was attached to the draping. The semi rigid ureteroscope was passed over one of the guidewires to the level of the stone in the ureter. One guidewire was then removed. Laser lithotripsy of the stone was done using the 365 fiber with a alternating pulsating and dusting setting. There was good fragmentation of the stone. The 0 degree basket was passed through the ureteroscope, stone fragment(s) removed and sent for analysis. The ureteroscope was removed. The cystoscope was passed over the safety guidewire. A? 6 Guinean by 24 cm stent was placed into the ureter and renal pelvis under a combination of fluoroscopy and direct visualization. The bladder was emptied.? The rigid cystoscope was removed. ? The patient tolerated the procedure well and was brought to the recovery room in stable condition. Complications: None Drains: Ureteral stent as dictated above
[2024-06-17 14:39] VITALS: BP 151/86; PULSE 86; RESP 16; TEMP 36.7; O2SAT 97
[2024-06-17 14:44] VITALS: BP 156/81; PULSE 86; RESP 16; O2SAT 96
[2024-06-17 14:49] VITALS: BP 167/90; PULSE 87; RESP 16; O2SAT 98
[2024-06-17] MEDS: Phenazopyridine HCL 200 MG TABLET PO (14:53)
[2024-06-17 14:54] VITALS: BP 168/93; PULSE 91; RESP 16; O2SAT 99
[2024-06-17 15:09] VITALS: BP 170/97; PULSE 88; RESP 18; TEMP 36.6; O2SAT 98
== END 2024-06-17 15:24 | disposition home or self-care (01) ==
PROVIDERS: Visit Provider Urology
PROC: (CPT 52356; principal; 2024-06-17 13:40)
DX: N20.1 Calculus of ureter (principal); N13.30 Unspecified hydronephrosis; R10.9 Unspecified abdominal pain; I10 Essential (primary) hypertension; G43.909 Migraine, unspecified, not intractable, without status migrainosus; Z79.899 Other long term (current) drug therapy; Z79.52 Long term (current) use of systemic steroids; Z88.5 Allergy status to narcotic agent
CPT/HCPCS: 52356; 74018; 82365; 87086; 88300; C1726; C1758; C1769; C2617; J0690; J1100; J2003; J2250; J2405; J2704; J3010; Q9967

== ENCOUNTER → 2024-06-17 11:53 | Outpatient (BNV) | payer OTHER, SELFPAY | PROVIDERS: Visit Provider Urology | DX: N20.1 Calculus of ureter (principal) | CPT/HCPCS: 52356; 74420 ==

== ENCOUNTER → 2024-06-17 12:05 | Outpatient (BNV) | payer OTHER, SELFPAY | PROVIDERS: Visit Provider Radiology Diagnostic Radiology | DX: N13.30 Unspecified hydronephrosis (principal) | CPT/HCPCS: 74018 ==

== ENCOUNTER 2024-06-27 13:03 | Outpatient (AMB) | payer OTHER, SELFPAY ==
--- NOTE | 2024-06-27 13:11 | A.OFFVIS_ITS ---
Intake Visit Reasons: Stent removal Intake Note: Patient is present for STENT REMOVAL Urology Medication:SOLIFENACIN Antibiotic Allergy:NONE Blood Thinner:NONE LOT:[id number] EXP:04/21/27 Phys Asst Required: No Allergies oxycodone [From PERCOCET] Allergy (Unknown, Verified 06/27/24 13:13) ITCHYNESSS HPI Comments Details: 06/27/24--here for stent removal. Discussed stone analysis calcium oxalate. Plan 24 hr urine fu post. Review of chart: 06/16/24- follow-up visit for left ureteral stone and flank pain. The patient states she has been taking extra-strength Tylenol every 8 hours and the morphine p.r.n.. The pain is manageable but is not getting better. At times the pain gets unbearable and she thought she might need to go to the emergency room last night. I have discussed adding her to tomorrow schedule for ureteroscopy laser lithotripsy. 06/06/24--Zonia is a 58-year-old female who is seen in the emergency room for flank pain. A 6 mm ureteral stone was identified. The patient is here with her and states the pain is manageable with the pain meds she was given. She denies fever. I discussed treatment options to include conservative as along as pain is manageable and there are no signs of infection but if she does not pass the stone, therapy discussed included ESWL vs ureteroscopy with laser lithotripsy. CTAP 06/05/24--6 mm left UPJ stone, with hydro. PFSH Medical History Migraine HTN (hypertension) Surgical History History of hysterectomy Social History Patient Tobacco Use Status: Never used Tobacco Review of Systems Const All systems reviewed & are unremarkable except as noted in HPI and below Reports no additional complaints Eyes Reports no additional complaints ENT Reports no additional complaints Card Reports no additional complaints Resp Reports no additional complaints GI Reports no additional complaints Reports as per HPI Musc Reports no additional complaints Skin/Breast Reports system reviewed and no additional complaints, except as documented Neuro Reports no additional complaints Psych Reports no additional complaints Endo Reports no additional complaints Louie/Lymph Reports no additional complaints Aller/Immun Reports no additional complaints Office Procedures Cystoscopy Consent Discussed risk and benefit or proposed procedure with the patient. Information consent for procedure given to the patient. Discussed technical aspects, risks, benefits and alternatives in full. Addressed all of the patient's questions and concerns regarding the procedure. The patient demonstrated knowledge and understanding. They wish to proceed with this procedure. Preparation The patient was prepped in the usual manner. A insurance compliance analyst was present and in the room. Genitalia was prepped with betadine solution in a sterile manner. Lidocaine Jelly 2% was placed into the urethra and 16Fr flexible Olympus cystoscope was inserted into the meatus after adequate lubrication. Procedure Time out per protocol performed. Bladder Inspection Cystoscopy findings: mild edema ureteral orifice which is expected, distal end of ureteral stent visualized. The grasping forceps were used and the stent was removed without difficulty. 41102-[id number] with stent removal DISPOSABLE SCOPE URO-G FLEXIBLE SCOPE Procedure code (CPT) selection complete Office Meds lidocaine HCl 2 % mucosal jelly in applicator Performing Provider: Ehsan Riojas MD [place] [facility] [place] [facility] Documented (not given) by: Ehsan Riojas MD on 06/27/24 13:58 Dose Route Admin Location Dispensed Lot Number Expiration Date NDC Wood Fence Installer 10 mL intra-urethral mL nitrofurantoin monohydrate/macrocrystals 100 mg capsule Performing Provider: Ehsan Riojas MD [place] [facility] [place] [facility] Documented (not given) by: Ehsan Riojas MD on 06/27/24 13:58 Dose Route Admin Location Dispensed Lot Number Expiration Date NDC Wood Fence Installer 100 mg PO cap naproxen 500 mg tablet Performing Provider: Ehsan Riojas MD [place] [facility] [facility] Documented (not given) by: Ehsan Riojas MD on 06/27/24 13:58 Dose Route Admin Location Dispensed Lot Number Expiration Date NDC Wood Fence Installer 500 mg PO tab Results AMB Urinalysis, Automated UA Leukoctes 0 Charlie/uL Last Edit by KRISTEN Shields on 06/27/24 13:35 UA Nitrite Negative Last Edit by KRISTEN Shields on 06/27/24 13:35 UA Urobilinogen 0.2 mg/dL Last Edit by KRISTEN Shields on 06/27/24 13:3 5 UA Protein 30 mg/dL Last Edit by KRISTEN Shields on 06/27/24 13:35 UA pH 6.0 Last Edit by KRISTEN Shields on 06/27/24 13:35 UA Blood 200 Boubacar/uL Last Edit by KRISTEN Shields on 06/27/24 13:35 UA Specific [place] 1.020 Last Edit by KRISTEN Shields on 06/27/24 13: 35 UA Ketone Negative Last Edit by KRISTEN Shields on 06/27/24 13:35 UA Bilirubin 0 mg/dL Last Edit by KRISTEN Shields on 06/27/24 13:35 UA Glucose 0 mg/dL Last Edit by Arab[facility]agomez [facility] on 06/27/24 13:35 Results Reviewed Results Reviewed: Laboratory Last Values Urine pH (Auto) 6.0 06/27/24 13:35 Specific [place] (Auto) 1.020 06/27/24 13:35 Urine Protein (Auto) 30 mg/dL 06/27/24 13:35 Glucose (UA)(Auto) 0 mg/dL 06/27/24 13:35 Urine Ketones (Auto) Negative 06/27/24 13:35 Urine Blood (Auto) 200 Boub[place]ar/uL 06/27/24 13:35 Urine Nitrite (Auto) Negative 06/27/24 13:35 Urine Bilirubin (Auto) 0 mg/dL 06/27/24 13:35 Urine Urobilinogen (Auto) 0.2 mg/dL 06/27/24 13:35 Leukocyte Esterase (Auto) 0 Charlie/uL 06/27/24 13:35 Assessment & Plan Assessment & Plan (1) Kidney stone: Code(s): N20.0 - Calculus of kidney Category: Medical (2) Ureteral stent present: Code(s): Z96.0 - Presence of urogenital implants Category: Medical Plan 24 hr urine. fu 14 weeks Orders: Orders AMB Urinalysis Automated Today Z13.9 - Encounter for screening, unspecified AMB Cystoscopy Today N20.0 - Calculus of kidney, Z96.0 - Presence of urogenital implants Medications: New nitrofurantoin monohyd/m-cryst 100 mg 100 mg PO ONCE 1 cap 0RF N20.0 - Calculus of kidney, Z96.0 - Presence of urogenital implants naproxen 500 mg PO ONCE 1 tab 0RF N20.0 - Calculus of kidney, Z96.0 - Presence of urogenital implants lidocaine HCl 2% 10 mL intra-urethral ONCE 10 mL 0RF N20.0 - Calculus of kidney, Z96.0 - Presence of urogenital implants Patient Instructions: The patient had an opportunity to ask questions regarding treatment plan. The patient expressed understanding and agreement with the above treatment plan. The patient is aware they should contact our office by phone for worsening of their current condition or the appearance of new symptoms. Compliance is encouraged with any medications and followup testing that is ordered. It is a privilege to be allowed the opportunity to participate in the urologic care of your patient. If you have any questions or concerns regarding treatment for the above conditions please do not hesitate to contact me. The office telephone contact is [phone]. This note is constructed in part using voice recognition software. While every effort has been made to ensure accuracy bender hand errors may have been included. Yours sincerely, Ehsan Riojas MD Coding Level of Care Code Procedure Only Diagnoses Kidney stone N20.0 Ureteral stent present Z96.0 CPT Codes Cystoscopy - CPT: 59658-[id number] with stent removal ([id number])
== END 2024-06-27 14:09 | disposition home or self-care (01) ==
PROVIDERS: Visit Provider Urology
DX: N20.0 Calculus of kidney (principal); Z96.0 Presence of urogenital implants; Z13.9 Encounter for screening, unspecified
CPT/HCPCS: 52310

== ENCOUNTER → 2024-06-27 13:03 | Outpatient (BNVA) | payer OTHER, SELFPAY | PROVIDERS: Visit Provider Urology | DX: Z46.6 Encounter for fitting and adjustment of urinary device (principal); N20.0 Calculus of kidney | CPT/HCPCS: 52310; 81003 ==

== ENCOUNTER 2024-11-20 15:47 | Outpatient (AMB) | payer OTHER, SELFPAY ==
--- NOTE | 2024-11-20 15:56 | MHC.OFFVIS ---
Intake Visit Reasons: litholink follow up- r/s Intake Note: Patient is present for follow up/Litholink 09/30 Litholink comp. Urology Medication:Solifenacin Antibiotic Allergy:NONE Blood Thinner:NONE Cover Stitch Machine Operator Required: No Allergies oxycodone [From PERCOCET] Allergy (Unknown, Verified 11/20/24 15:57) ITCHYNESSS HPI Comments Details: 11/20/24-- 06/27/24--here for stent removal. Discussed stone analysis calcium oxalate. Plan 24 hr urine fu post. 06/16/24- follow-up visit for left ureteral stone and flank pain. The patient states she has been taking extra-strength Tylenol every 8 hours and the morphine p.r.n.. The pain is manageable but is not getting better. At times the pain gets unbearable and she thought she might need to go to the emergency room last night. I have discussed adding her to tomorrow schedule for ureteroscopy laser lithotripsy. 06/06/24--Zonia is a 58-year-old female who is seen in the emergency room for flank pain. A 6 mm ureteral stone was identified. The patient is here with her and states the pain is manageable with the pain meds she was given. She denies fever. I discussed treatment options to include conservative as along as pain is manageable and there are no signs of infection but if she does not pass the stone, therapy discussed included ESWL vs ureteroscopy with laser lithotripsy. CTAP 06/05/24--6 mm left UPJ stone, with hydro. PFSH Medical History Migraine HTN (hypertension) Surgical History History of hysterectomy Social History Patient Tobacco Use Status: Never used Tobacco Results AMB Urinalysis, Automated UA Leukoctes 0 Charlie/uL Last Edit by SMA Kaiser on 11/20/24 16:39 UA Nitrite Last Edit by SMA Kaiser on 11/20/24 16:39 UA Urobilinogen 3.5 mg/dL Last Edit by SMA Kaiser on 11/20/24 16:39 UA Protein 0.3 mg/dL Last Edit by Greg Tai, [facility] on 11/20/24 16:39 UA pH 5.5 Last Edit by Greg Tai, [facility] on 11/20/24 16:39 UA Blood 0 Boubacar/uL Last Edit by Greg Tai, [facility] on 11/20/24 16:39 UA Specific [place] 1.025 Last Edit by Greg Tai, [facility] on 11/20/24 16:39 UA Ketone Last Edit by Greg Tai, [facility] on 11/20/24 16:39 UA Bilirubin 0 mg/dL Last Edit by Greg Tai, [facility] on 11/20/24 16:39 UA Glucose 0 mg/dL Last Edit by Greg Tai, [facility] on 11/20/24 16:39 Assessment & Plan Assessment & Plan Orders: Orders AMB Urinalysis Automated Today N13.30 - Unspecified hydronephrosis, N20.0 - Calculus of kidney, R10.9 - Unspecified abdominal pain, Z96.0 - Presence of urogenital implants Coding
--- OUTSIDE RECORDS SUMMARY | 2024-11-20 18:05 | XMS_ITS | Patient Health Record ---
Author Organization [facility] Address [address] [place] [address] Care Team Providers Care Knit Goods Washer Name Role Phone Seble Costello Primary Care Provider UnavailDeepak Goncalves Unavailable [phone] Allergies No Known Allergies Reason For Referral No Information Medications Medication SIG (Take, Route, Fr equency, Duration) Notes Start Date End Date Status tylenol Active Vitamin D Active Omeprazole 20 MG 1 capsule 30 minutes before morning meal Orally Once a day for 30 day(s) Active Social History Tobacco Use: Social History Observation Description Date Details (start date - stop date) Never Smoker NA - NA Tobacco Use/Smoking Question Answer Notes Patient is [...] Never (0 point) Points 1 Interpretation Negative Section Notes: Nonsmoker, no sig alcohol Problems Problem Type SNOMED Code ICD Code Onset Dates Problem Status W/U Status Risk Notes Problem [id number] Encounter for screening for malignant neoplasm of colon (Z12.11) Active confirmed Problem 12295097 Abdominal pain, epigastric (R10.13) Active confirmed Plan Of Treatment Pending Test Test Name Order Date US ABD 01/06/2021 US abdomen complete 01/25/2021 Future Test Test Name Order Date UPPER GI ENDOSCOPY 01/06/2021 COLONOSCOPY 01/06/2021 Insurance Providers Payer Name Payer Address Payer Phone Subscriber Number Group Number Insured Name Patient Relationship to Insured Coverage Start Date Coverage End Date [facility] [address] [place] [phone] [id number] ZACHARY MACKENZIE Self - patient is the insured Medical (General) History Medical History History ICD Code Hypertension Migraine headaches Hx of blood transfusions/anemia from [facility] - Dr. Parker Denies [place],DM,CVA,Lung disease,renal dise ase Surgical History Surgery Date(Month/Year) Hysterectomy 2008
== END 2024-11-20 16:42 | disposition home or self-care (01) ==
LOC: HO.HUSH 15:48
PROVIDERS: Visit Provider Urology
DX: Z96.0 Presence of urogenital implants (principal); N20.0 Calculus of kidney; R10.9 Unspecified abdominal pain; N13.30 Unspecified hydronephrosis

== ENCOUNTER → 2024-11-20 15:47 | Outpatient (BNVA) | payer OTHER, SELFPAY | PROVIDERS: Visit Provider Urology | DX: N20.0 Calculus of kidney (principal); R10.9 Unspecified abdominal pain; N13.30 Unspecified hydronephrosis; Z90.710 Acquired absence of both cervix and uterus; Z96.0 Presence of urogenital implants | CPT/HCPCS: 81003 ==

== ENCOUNTER 2025-03-10 14:08 | Outpatient (REF) | payer OTHER, SELFPAY ==
--- NOTE | ~2025-03-10 | XR_ITS ---
EXAMINATION: XR SHOULDER, LEFT CLINICAL INFORMATION: PAIN LEFT SHOULDER COMPARISON: None available. TECHNIQUE: AP external rotation, Grashey, scapular Y, and axillary views of the left shoulder. FINDINGS: Normal bone mineralization. No fracture, dislocation, or suspicious bone lesion. Normal alignment. The glenohumeral joint is normal. The AC joint is normal. There is a type II acromion. No undersurface spurring. The subacromial space is preserved. Remainder of the soft tissue and bony structures appear normal. XR/XR shoulder LT min 2V IMPRESSION: Normal left shoulder. Electronically signed by: Reza Richardson MD 03/10/2025 03:47 PM EDT
--- OUTSIDE RECORDS SUMMARY | 2025-03-10 17:28 | XMS_ITS | Patient Health Record ---
Author Organization [facility] Address [address] [place] [address] Care Team Providers Care Finished Goods Inspector Name Role Phone Seble Costello Primary Care Provider UnavailDeepak Goncalves Unavailable [phone] Allergies No Known Allergies Reason For Referral [...] Problem Status W/U Status Risk Notes Problem [id number] Encounter for screening for malignant neoplasm of colon (Z12.11) Active confirmed Problem 01931392 Abdominal pain, epigastric (R10.13) Active confirmed Plan Of Treatment Pending Test Test Name Order Date US ABD 01/06/2021 US abdomen complete 01/25/2021 Future Test Test Name Order Date UPPER GI ENDOSCOPY 01/06/2021 COLONOSCOPY 01/06/2021 Insurance Providers Payer Name Payer Address Payer Phone Subscriber Number Group Number Insured Name Patient Relationship to Insured Coverage Start Date Coverage End Date [facility] [address] [facility] [phone] [id number] ZACHARY MACKENZIE Self - patient is the insured Medical (General) History Medical History History ICD Code Hypertension Migraine headaches Hx of blood transfusions/anemia from [facility] - Dr. Parker Denies [place],DM,CVA,Lung disease,renal dise ase Surgical History Surgery Date(Month/Year) Hysterectomy 2008
== END 2025-03-10 14:09 | disposition home or self-care (01) ==
LOC: HO.XRAY 14:08
PROVIDERS: PCP Internal Medicine; Visit Provider Internal Medicine
DX: M25.512 Pain in left shoulder (principal)
CPT/HCPCS: 73030

== ENCOUNTER → 2025-03-10 14:12 | Outpatient (BNV) | payer OTHER, SELFPAY | PROVIDERS: PCP Internal Medicine; Visit Provider Radiology Diagnostic Radiology | DX: M25.512 Pain in left shoulder (principal) | CPT/HCPCS: 73030 ==

== ENCOUNTER 2025-03-23 15:26 | Outpatient (AMB) | payer OTHER, SELFPAY ==
--- NOTE | 2025-03-23 15:23 | MHC.OFFVIS ---
Intake Visit Reasons: 4M litholink f/u Intake Note: pt here today for: 4m litholink F/u Cashier Checker Required: No Allergies oxycodone (From PERCOCET) Allergy (Unknown, Verified 03/23/25 15:26) Rash HPI Comments Details: 03/23/25--Discussed 24 hour urine results collected:12/05/24-- Total volume 2.77 L, Calcium 500 mg; Oxalate 45 mg, Citrate 42 mg, Sodium 401. History of Present Illness The patient is a 59-year-old female presenting with kidney stones. She has a history of kidney stones and recently completed a 24-hour urine collection to evaluate her condition. The urine test indicated elevated levels of calcium and oxalate, with calcium at 500 mg (normal <200 mg) and oxalate at 45 mg (normal 20-40 mg).The sodium level was also elevated at 400 mg, while the normal range is 50-150 mg. The patient has been advised to monitor her sodium intake, particularly from fast foods and processed items. She is also experiencing rotator cuff tendinitis, which has been causing significant pain and impacting her daily activities. She has been referred to [facility] for further evaluation, but the appointment is not available until June. Plan - Referral to nephrology for further evaluation of kidney function and management of elevated urine calcium and oxalate levels. - Recommendation to continue hydration to prevent stone formation. - Dietary advice to reduce sodium intake, particularly from fast foods and processed items. - Prescription of Vitamin B6, 50-100 mg daily, to help metabolize oxalates. - FU renal US in 6 months 11/20/24--Zonia is a 59 year old female followed for kidney stones. She denies recent flank pain. h/o calcium oxalate stones. Will cont to monitor. FU --check 24 hr urine test. 06/27/24--here for stent removal. Discussed stone analysis calcium oxalate. Plan 24 hr urine fu post. 06/16/24- follow-up visit for left ureteral stone and flank pain. The patient states she has been taking extra-strength Tylenol every 8 hours and the morphine p.r.n.. The pain is manageable but is not getting better. At times the pain gets unbearable and she thought she might need to go to the emergency room last night. I have discussed adding her to tomorrow schedule for ureteroscopy laser lithotripsy. 06/06/24--Zonia is a 58-year-old female who is seen in the emergency room for flank pain. A 6 mm ureteral stone was identified. The patient is here with her and states the pain is manageable with the pain meds she was given. She denies fever. I discussed treatment options to include conservative as along as pain is manageable and there are no signs of infection but if she does not pass the stone, therapy discussed included ESWL vs ureteroscopy with laser lithotripsy. CTAP 06/05/24--6 mm left UPJ stone, with hydro. PFSH Medical History Migraine HTN (hypertension) Surgical History History of hysterectomy Social History Patient Tobacco Use Status: Never used Tobacco Review of Systems Const All systems reviewed & are unremarkable except as noted in HPI and below Reports no additional complaints Eyes Reports no additional complaints ENT Reports no additional complaints Card Reports no additional complaints Resp Reports no additional complaints GI Reports no additional complaints Reports as per HPI Musc Reports no additional complaints Skin/Breast Reports system reviewed and no additional complaints, except as documented Neuro Reports no additional complaints Psych Reports no additional complaints Endo Reports no additional complaints Louie/Lymph Reports no additional complaints Aller/Immun Reports no additional complaints Telehealth Telehealth Telehealth Platform: [facility] Location of provider rendering services: practice address Location of patient: address on file Patient Identification confirmed using: Name, : Yes Telehealth method: video Patient verbally consented to treatment: Yes Patient verbally consented to billing insurance company: Yes Patient informed of any privacy concerns related to visit: Yes Results Reviewed Results Reviewed: Date of Service: 06/05/24 CT ABDOMEN AND PELVIS WITHOUT CONTRAST CLINICAL INFORMATION: Severe left-sided flank pain COMPARISON: None available. TECHNIQUE: Multidetector volumetric imaging was performed from the superior aspect of the liver through the pubic symphysis. Sagittal and coronal reformatted images were obtained on the technologist's workstation. This CT examination was performed using dose optimization techniques as appropriate, variously including the following: *Automated exposure control *Adjustment of mA and/or kV according to patient size (this includes techniques or standardized protocols for targeted exams where dose is matched to indication/reason for exam; i.e. extremities or head) *Use of iterative reconstruction technique DLP: 507 mGy-cm FINDINGS: LUNG BASES: The visualized lung bases are unremarkable. LIVER, GALLBLADDER, AND BILIARY TREE: The liver is normal in size, shape, and attenuation. No focal hepatic lesion or biliary ductal dilatation is present. The gallbladder is unremarkable with no evidence of radiopaque gallstones, gallbladder wall thickening, or obvious pericholecystic inflammatory changes. PANCREAS: Unremarkable. SPLEEN: Unremarkable. ADRENAL GLANDS: Unremarkable. KIDNEYS AND URETERS: There is engorgement of the left kidney with perinephric stranding and mild left hydronephrosis. There is an obstructing stone observed at the left UPJ, at 4.6 mm. No right or left nephrolithiasis. No right hydronephrosis or perinephric collection. BLADDER: Unremarkable. GASTROINTESTINAL TRACT: Moderate sigmoid diverticulosis noted without diverticulitis. No bowel obstruction or right or left lower quadrant inflammatory change. Appendix normal. ABDOMINAL WALL: No significant hernia is appreciated. LYMPH NODES: Normal. VASCULAR: Unremarkable. PELVIC VISCERA: Uterus absent. No ascites. No adnexal masses. OSSEOUS STRUCTURES: On the lytic change within the spine. No fracture or destructive process. IMPRESSION: Obstructing stone in the left UPJ. Assessment & Plan Assessment & Plan (1) History of kidney stones: Code(s): Z87.442 - Personal history of urinary calculi Category: Medical (2) Hyperoxaluria: Code(s): R82.992 - Hyperoxaluria Category: Medical (3) Hypercalciuria: Code(s): R82.994 - Hypercalciuria Category: Medical Plan Plan - Referral to nephrology for further evaluation of kidney function and management of elevated urine calcium and oxalate levels. - Recommendation to continue hydration to prevent stone formation. - Dietary advice to reduce sodium intake, particularly from fast foods and processed items. - Prescription of Vitamin B6, 50-100 mg daily, to help metabolize oxalates. - FU renal US in 6 months Orders: Orders US renal BI 6 Months Z87.442 - Personal history of urinary calculi Referrals Nephrology Referral R82.992 - Hyperoxaluria, R82.994 - Hypercalciuria Medications: New pyridoxine (vitamin B6) 100 mg PO DAILY 90 tabs 3RF Patient Instructions: The patient had an opportunity to ask questions regarding treatment plan. The patient expressed understanding and agreement with the above treatment plan. The patient is aware they should contact our office by phone for worsening of their current condition or the appearance of new symptoms. Compliance is encouraged with any medications and followup testing that is ordered. It is a privilege to be allowed the opportunity to participate in the urologic care of your patient. If you have any questions or concerns regarding treatment for the above conditions please do not hesitate to contact me. The office telephone contact is [phone]. This note is constructed in part using voice recognition software. While every effort has been made to ensure accuracy online merchandiser errors may have been included. Yours sincerely, Ehsan Riojas MD Coding Level of Care Code Tele Est Pt Level 4 (92224) Diagnoses History of kidney stones Z87.442 Hyperoxaluria R82.992 Hypercalciuria R82.994
--- OUTSIDE RECORDS SUMMARY | 2025-03-23 17:51 | XMS_ITS | Patient Health Record ---
Author Organization [facility] Address [address] [place] [address] Care Team Providers Care Waste Removalist Name Role Phone Seble Costello Primary Care Provider UnavailDeepak Goncalves Unavailable [phone] Allergies No Known Allergies Reason For Referral [...] Problem Status W/U Status Risk Notes Problem [id number] Encounter for screening for malignant neoplasm of colon (Z12.11) Active confirmed Problem 91821652 Abdominal pain, epigastric (R10.13) Active confirmed Plan Of Treatment Pending Test Test Name Order Date US ABD 01/06/2021 US abdomen complete 01/25/2021 Future Test Test Name Order Date UPPER GI ENDOSCOPY 01/06/2021 COLONOSCOPY 01/06/2021 Insurance Providers Payer Name Payer Address Payer Phone Subscriber Number Group Number Insured Name Patient Relationship to Insured Coverage Start Date Coverage End Date [facility] [address] [place] [phone] [id number] ZACHARY MACKENZIE Self - patient is the insured Medical (General) History Medical History History ICD Code Hypertension Migraine headaches Hx of blood transfusions/anemia from [facility] - Dr. Parker Denies [place],DM,CVA,Lung disease,renal dise ase Surgical History Surgery Date(Month/Year) Hysterectomy 2008
== END 2025-03-23 16:47 | disposition home or self-care (01) ==
LOC: HO.HUSH 15:26
PROVIDERS: PCP Internal Medicine; Visit Provider Urology
DX: Z87.442 Personal history of urinary calculi (principal); R82.992 Hyperoxaluria; R82.994 Hypercalciuria
CPT/HCPCS: 99214

== ENCOUNTER 2025-04-01 08:08 | Outpatient (REF) | payer OTHER, SELFPAY ==
[2025-04-01 08:27] LABS: MANUAL DIFF FLAG NO
[2025-04-01 09:21] LABS: Hematocrit 41.0 % (37.0-47.0); Hemoglobin 13.0 g/dl (12.0-16.0); Imm Gran Abs Auto 0.02 X10*3/uL (0.00-0.03); Imm Gran Pct Auto 0.3 % (0.0-0.4); Lymphocytes Absolute Auto 2.4 X10*3/uL (1.2-4.9); Mean Corpuscular HGB Conc 31.7 g/dl (31.0-35.0); Mean Corpuscular Hemoglobin 26.3 pg (27.0-33.0); Mean Corpuscular Volume 82.8 fL (80.0-98.0); NRBC Abs Auto 0.000 X10*3/uL (0.0-0.012); NRBC Pct Auto 0.0 /100WBC (0.0-0.2); Platelet Count 321 X10*3/uL (160-400); Red Blood Count 4.95 X10*6/uL (4.20-5.50); White Blood Count 7.4 X10*3/uL (4.8-10.8)
[2025-04-01 10:24] LABS: Alanine Aminotransferase 31 U/L (0-31); Albumin Level 4.7 g/dL (3.5-5.0); Alkaline Phosphatase 89 U/L (39-117); Anion Gap 13 (12-20); Aspartate Amino Transferase 26 U/L (5-31); Blood Urea Nitrogen 19 mg/dL (9-16); Calcium 10.0 mg/dL (8.4-10.2); Carbon Dioxide 27 mmol/L (22-29); Chloride 107 mmol/L (96-108); Cholesterol 268 mg/dL (<200); Estimated Glomerular Filt Rate > 60; HDL Cholesterol 64 mg/dL (>40); Potassium 4.2 mmol/L (3.3-5.1); Sodium 143 mmol/L (135-145); Total Protein 7.6 g/dL (6.5-8.0); Triglycerides 162 mg/dL (<150)
== END 2025-04-01 08:09 | disposition home or self-care (01) ==
LOC: HO.LAB 08:08
PROVIDERS: PCP Internal Medicine; Visit Provider Internal Medicine
DX: I10 Essential (primary) hypertension (principal); M75.42 Impingement syndrome of left shoulder; M75.82 Other shoulder lesions, left shoulder; E78.00 Pure hypercholesterolemia, unspecified
CPT/HCPCS: 36415; 80053; 80061; 85025

== ENCOUNTER 2025-04-10 14:15 | Outpatient (AMB) | payer OTHER, SELFPAY ==
--- NOTE | 2025-04-10 14:19 | HO.NEPHOV ---
Vital Signs 04/10/25 14:20 Height 5 ft 2 in Weight 157 lb BMI 28.7 BP 178/88 H Blood Pressure Location Rt brachial Position Sitting Pulse 71 Pulse Source Pulse Oximeter Pulse Oximetry (%) 99 Oxygen Delivery Method Room Air Intake Visit Reasons: INP:Hypercalciuria,conf. Accounting File Clerk Required: No Accompanied by: Self / Same As Patient Allergies oxycodone (From PERCOCET) Allergy (Unknown, Verified 04/10/25 14:20) Rash Medication List - Last Reconciled 04/10/25 by Cholo Mathews MD pyridoxine (vitamin B6) 100 mg PO DAILY HPI Comments Details: - The patient is a 59-year-old female presenting with hypercalciuria and nephrolithiasis. - First kidney stone occurred in May, requiring surgical intervention and stent placement. - Elevated urinary calcium levels post-surgery led to nephrology referral. - Hypertension with inconsistent losartan use; recent BP 178/88 mmHg. - Hypercholesterolemia with cholesterol at 268 mg/dL. - Rotator cuff tendinitis with cortisone injection administered. - High sodium diet and improved fluid intake noted. [facility] Medical History Migraine HTN (hypertension) Surgical History History of hysterectomy Social History Patient Tobacco Use Status: Never used Tobacco Review of Systems Const Denies fever(s) and Denies weight loss Card Denies chest pain Resp Denies cough and Denies hemoptysis GI Denies abdominal pain, Denies diarrhea and Denies nausea Musc Denies back pain Neuro Denies focal weakness Physical Exam Vital Signs: Last Vital Signs Pulse 71 04/10/25 14:20 BP 178/88 H 04/10/25 14:20 Pulse Ox 99 04/10/25 14:20 Oxygen Delivery Method Room Air 04/10/25 14:20 BMI result Body Mass Index 28.7 Comfortable Neck supple no JVD. Lungs entry equal no rales. Heart S1-S2 heard no gallop or rub. Abdomen soft nontender. Neuro alert awake oriented. No asterixis. Extremities no edema. Results Reviewed Nephrology Results: Hgb, (12.0-16.0) 13.0 g/dl 10/15/25 WBC, (4.8-10.8) 7.4 X10*3/uL 04/01/25 Plt Count, (160-400) 321 X10*3/uL 04/01/25 Sodium, (135-145) 143 mmol/L 04/01/25 Potassium, (3.3-5.1) 4.2 mmol/L 04/01/25 Chloride, (96-108) 107 mmol/L 04/01/25 Carbon Dioxide, (22-29) 27 mmol/L 04/01/25 BUN, (9-16) 19 mg/dL H 04/01/25 Creatinine, (0.5-1.4) 0.64 mg/dL 04/01/25 Calcium, (8.4-10.2) 10.0 mg/dL Δ 04/01/25 Assessment & Plan Assessment & Plan (1) Kidney stone: Code(s): N20.0 - Calculus of kidney Category: Medical Plan Nephrolithiasis - Stent placement for stone removal. - Continue increased fluid intake. - Reduce sodium intake, increase fluid intake to over 2 liters daily. - Increase urinary citrate with lemonade consumption. - Repeat 24-hour urine collection in six weeks. Hypertension - Losartan 50 mg prescribed. -low-salt Orders: Orders Sodium, 24Hr Urine Group 6 Weeks N20.0 - Calculus of kidney Calcium, 24 Hr Ur 6 Weeks N20.0 - Calculus of kidney Oxalate, 24 Hr 6 Weeks N20.0 - Calculus of kidney Citric Acid 24hr Urine 6 Weeks N20.0 - Calculus of kidney Creatinine, 24 Hr Group 6 Weeks N20.0 - Calculus of kidney Uric Acid, 24Hr Urine Group 6 Weeks N20.0 - Calculus of kidney Medications: New losartan 50 mg PO DAILY 30 tabs 1RF Coding Level of Care Code New Pt Level 4 (09756) Diagnoses Kidney stone N20.0
[2025-04-10 14:20] VITALS: BP 178/88; PULSE 71; O2SAT 99; BMI 28.7
--- OUTSIDE RECORDS SUMMARY | 2025-04-10 16:16 | XMS_ITS | Patient Health Record ---
Author Organization [facility] Address [address] [place] [address] Care Team Providers Care Engraver Hand Soft Metals Name Role Phone Seble Costello Primary Care Provider UnavailDeepak Goncalves Unavailable [phone] Allergies No Known Allergies Reason For Referral No Information Medications Medication SIG (Take, Route, Fr equency, Duration) Notes Start Date End Date Status tylenol Active Vitamin D Active Omeprazole 20 MG 1 capsule 30 minutes before morning meal Orally Once a day; Duration: 30 day(s) Active Social History Tobacco Use: [...] Problem Status W/U Status Risk Notes Problem Screening for malignant neoplasm of colon (889592604) Encounter for screening for malignant neoplasm of colon (Z12.11) Active confirmed Problem Epigastric pain (78517280) Abdominal pain, epigastric (R10.13) Active confirmed Plan Of Treatment Pending Test Test Name Order Date US ABD 01/06/2021 US abdomen complete 01/25/2021 Future Test Test Name Order Date UPPER GI ENDOSCOPY 01/06/2021 COLONOSCOPY 01/06/2021 Insurance Providers Payer Name Payer Address Payer Phone Subscriber Number Group Number Insured Name Patient Relationship to Insured Coverage Start Date Coverage End Date [facility] [address] [facility] [place] [phone] [id number] ZACHARY MACKENZIE Self - patient is the insured Medical (General) History Medical History History ICD Code Hypertension Migraine headaches Hx of blood transfusions/anemia from [facility] - Dr. Parker Denies [place],DM,CVA,Lung disease,renal dise ase Surgical History Surgery Date(Month/Year) Hysterectomy 2008
== END 2025-04-10 15:06 | disposition home or self-care (01) ==
LOC: HO.HKA 14:16
PROVIDERS: PCP Internal Medicine; Visit Provider Internal Medicine Hypertension Specialist
DX: N20.0 Calculus of kidney (principal)
CPT/HCPCS: 99204